=== PATIENT | male | born 1985 | race Two or more races ===

== ENCOUNTER 2017-10-06 15:21 | Emergency (ER) | payer OTHER ==
[2017-10-06 15:33] VITALS: BP 125/80
[2017-10-06] MEDS ORDERED: LIDOCAINE 1% (LOCAL ANESTH.) PF 5ml SDV ONE (16:47)
[2017-10-06] MEDS ORDERED: BACITRACIN TOP OINT 1 UD PKG TOP ONE ×2 (16:47→17:00)
[2017-10-06] MEDS ORDERED: LIDOCAINE 1% (LOCAL ANESTH.) PF 5ml SDV ID ONE (17:00)
[2017-10-06] MEDS ORDERED: TETANUS-DIPTH-ACEL PERTUSSIS 0.5ML SYRG IM ONE (17:00)
== END 2017-10-06 18:52 | disposition home or self-care (01) ==
LOC: ER 15:21
DX: S61.412A Laceration without foreign body of left hand, initial encounter (principal); W26.0XXA Contact with knife, initial encounter; Y93.89 Activity, other specified; Y92.511 Restaurant or cafe as the place of occurrence of the external cause; Y99.8 Other external cause status
CPT/HCPCS: 12002; 73130; 90471; 90715

== ENCOUNTER 2019-06-05 01:19 | Emergency (ER) | payer SELFPAY | END 2019-06-05 05:38 | disposition left against medical advice (07) | LOC: ER 01:19 | DX: R51 Headache (principal); Z53.21 Procedure and treatment not carried out due to patient leaving prior to being seen by health care provider ==